=== PATIENT | male | born 1980 | race Two or more races ===

== ENCOUNTER 2023-04-27 16:09 | Emergency (ER) | payer OTHER ==
[~2023-04-27] VITALS: Ht 175.3 cm; Wt 124.8 kg
[2023-04-27 18:40] VITALS: BP 109/68; PULSE 95; RESP 18; TEMP 98.2; O2SAT 97
[2023-04-27] MEDS ORDERED: LIDOCAINE 1% HCL (LOCAL ANESTH.) INJ 20ML MDV ID ONE (19:45)
[2023-04-27] MEDS ORDERED: CEPH500C PO (19:54)
[2023-04-27] MEDS ORDERED: IBUP-1456 PO (19:54)
[2023-04-27] MEDS ORDERED: TETANUS-DIPTH-ACEL PERTUSSIS 0.5ML SYR Tdap IM ONE (20:00)
== END 2023-04-27 20:25 | disposition home or self-care (01) ==
LOC: ER 16:09
DX: S61.215A Laceration without foreign body of left ring finger without damage to nail, initial encounter (principal); W26.0XXA Contact with knife, initial encounter; Y93.89 Activity, other specified; Y92.89 Other specified places as the place of occurrence of the external cause; Y99.8 Other external cause status
CPT/HCPCS: 12001; 99283; J2001